=== PATIENT | female | born 1975 | race Caucasian/White ===

== ENCOUNTER 2020-08-09 16:56 | Inpatient (IN) ==
[2020-08-09] MEDS ORDERED: Dextrose 50% Syringe 50 ml 25 GM/50 ML SYRINGE IV PUSH PRN (17:26)
[2020-08-09 17:47] LABS: ABS Eosinophils 0.1 10^3/ul (0-0.6); ABS Lymphocytes 0.6 10^3/ul (1.0-4.8); ABS Monocytes 0.6 10^3/ul (0-0.8); ABS Neutrophils 9.6 10^3/ul (1.5-7.7); Eosinophil % 1.3 %; Hematocrit 31 % (35-47); Hemoglobin 10.4 g/dL (12.0-16.0); Lymphocyte % 5.3 %; Mean Corpuscular HGB Conc 34 g/dL (31-36); Mean Corpuscular Hemoglobin 32 pg (27-31); Mean Corpuscular Volume 95 fL (80-97); Mean Platelet Volume 9.1 fL (7.4-10.4); Platelet Count 178 10^3/uL (150-450); Red Blood Count 3.23 10^6 /uL (3.70-4.87); Red Cell Distribution Width 14 % (10-15); White Blood Count 10.9 10^3/uL (3.5-10.8)
[2020-08-09] MEDS ORDERED: LORazepam 2 mg VIAL 1 ml IV PUSH PRN (17:59)
[2020-08-09] MEDS ORDERED: Lorazepam PYXIS KEY PRN (17:59)
[2020-08-09] MEDS ORDERED: Heparin 5000 UNITS/ML 1 mL VIAL IV SCH (18:00)
[2020-08-09] MEDS ORDERED: Ondansetron 4 mg VIAL 2 MG/ML 2 ml VIAL IV PRN (18:01)
[2020-08-09 18:05] LABS: BUN/Creatinine Ratio 15.6 (8-20); Calcium 8.2 mg/dL (8.6-10.3); EGFR African American 35.9 (>60); EGFR Non-African American 29.7 (>60); Globulin 2.9 g/dL (2-4); Potassium 3.7 mmol/L (3.5-5.0); Total Bilirubin 5.9 mg/dL (0.2-1.0); Total Protein 5.9 g/dL (6.4-8.9)
[2020-08-09] MEDS: HYDROmorphone 1 MG/1 ML SYRINGE IV SLOW PU PRN ×2 (18:05→22:29)
[2020-08-09 18:18] LABS: Activated Partial Thrombo Time 45.6 seconds (26.0-38.0); INR 1.26 (0.82-1.09)
[2020-08-09] MEDS: Heparin DRIP 25,000 UNITS BAG 25,000 UNITS/500 ML BAG IV SCH (19:15)
[2020-08-09] MEDS: NS 0.9% 1000 ml BAG 1,000 ML IV SCH (19:21)
[2020-08-09] MEDS: Piperacillin/Tazobac ADVAN 3.375 GM in NS 0.9% 100 ml BAG 100 ML IV SCH (22:45)
[2020-08-10] MEDS: Levothyroxine 100 MCG/5 ML VIAL IV SCH (05:42)
[2020-08-10] MEDS: Piperacillin/Tazobac ADVAN 3.375 GM in NS 0.9% 100 ml BAG 100 ML IV SCH ×3 (05:46→22:26)
[2020-08-10 07:53] LABS: ABS Eosinophils 0.3 10^3/ul (0-0.6); ABS Lymphocytes 0.9 10^3/ul (1.0-4.8); ABS Monocytes 0.7 10^3/ul (0-0.8); ABS Neutrophils 7.8 10^3/ul (1.5-7.7); Eosinophil % 2.7 %; Hematocrit 31 % (35-47); Hemoglobin 10.2 g/dL (12.0-16.0); Lymphocyte % 9.3 %; Mean Corpuscular HGB Conc 33 g/dL (31-36); Mean Corpuscular Hemoglobin 32 pg (27-31); Mean Corpuscular Volume 97 fL (80-97); Mean Platelet Volume 9.4 fL (7.4-10.4); Platelet Count 180 10^3/uL (150-450); Red Blood Count 3.16 10^6 /uL (3.70-4.87); Red Cell Distribution Width 14 % (10-15); White Blood Count 9.6 10^3/uL (3.5-10.8)
[2020-08-10 08:04] LABS: Albumin 2.9 g/dL (3.2-5.2); BUN/Creatinine Ratio 17.7 (8-20); Calcium 8.2 mg/dL (8.6-10.3); EGFR African American 38.6 (>60); EGFR Non-African American 31.9 (>60); Globulin 2.8 g/dL (2-4); Indirect Bilirubin 1.6 mg/dL (0.3-1.0); Potassium 3.7 mmol/L (3.5-5.0); Total Bilirubin 5.3 mg/dL (0.2-1.0); Total Protein 5.7 g/dL (6.4-8.9)
[2020-08-10] MEDS: HYDROmorphone 1 MG/1 ML SYRINGE IV SLOW PU PRN ×2 (08:47→20:23)
[2020-08-10] MEDS: Insulin GLARGINE 100 un/ml 10 ml VIAL SUBCUT SCH (08:47)
[2020-08-10] MEDS: NS 0.9% 1000 ml BAG 1,000 ML IV SCH (10:18)
[2020-08-10] MEDS ORDERED: Perflutren Lipid Microsphere 3 ML VIAL ONE (10:49)
[2020-08-10] MEDS ORDERED: HYDROmorphone 1 MG/1 ML SYRINGE ONE (14:19)
[2020-08-10] MEDS ORDERED: Lidocaine 2% PF 5 ML VIAL ONE (14:20)
[2020-08-10] MEDS ORDERED: Midazolam 2 mg/2 ml VIAL 1 mg/ml 2 ml VIAL (2 mg) ONE (14:20)
[2020-08-10] MEDS ORDERED: Propofol 10 MG/ML 20 ML BTL ONE ×3 (14:20→15:14)
[2020-08-10] MEDS ORDERED: Ondansetron 4 mg VIAL 2 MG/ML 2 ml VIAL ONE (14:32)
[2020-08-10] MEDS ORDERED: Rocuronium 50 mg VIAL 10 mg/ml 5 ml VIAL (50 mg) ONE ×2 (15:03→15:11)
[2020-08-10] MEDS ORDERED: Succinylcholine 200 mg VIAL 20 mg/ml 10 ml VIAL (200 mg) ONE (15:11)
[2020-08-10] MEDS ORDERED: Bupivacaine 0.25% SDV 30 ML ONE (15:31)
[2020-08-10] MEDS ORDERED: Dexamethasone IV 4 MG/ML VIAL 1 ml VIAL ONE (16:09)
[2020-08-10] MEDS ORDERED: Phenylephrine IV 10 MG/ML 1 ml VIAL ONE (16:30)
[2020-08-10] MEDS ORDERED: EPHEDrine (Pressors) 50 MG/ML VIAL ONE (16:51)
[2020-08-10] MEDS ORDERED: fentaNYL 100 mcg/2 ml 50 MCG/ML VIAL ONE ×2 (17:09→18:33)
[2020-08-10] MEDS ORDERED: Metoclopramide 5 MG/ML VIAL (10 mg) IV PRN (18:30)
[2020-08-10] MEDS ORDERED: DiMENhydriNATE IV 50 mg/ml 1 ml VIAL IV PUSH PRN (18:30)
[2020-08-10] MEDS: fentaNYL 100 mcg/2 ml 50 MCG/ML VIAL IV PRN ×2 (18:35→18:48)
[2020-08-11] MEDS: HYDROmorphone 1 MG/1 ML SYRINGE IV SLOW PU PRN ×5 (00:21→21:02)
[2020-08-11] MEDS: Piperacillin/Tazobac ADVAN 3.375 GM in NS 0.9% 100 ml BAG 100 ML IV SCH ×3 (05:58→21:26)
[2020-08-11] MEDS: Levothyroxine 100 MCG/5 ML VIAL IV SCH (06:09)
[2020-08-11 06:56] LABS: ABS Lymphocytes 0.5 10^3/ul (1.0-4.8); ABS Monocytes 0.6 10^3/ul (0-0.8); ABS Neutrophils 9.6 10^3/ul (1.5-7.7); Hematocrit 31 % (35-47); Hemoglobin 10.4 g/dL (12.0-16.0); Lymphocyte % 4.8 %; Mean Corpuscular HGB Conc 34 g/dL (31-36); Mean Corpuscular Hemoglobin 33 pg (27-31); Mean Corpuscular Volume 97 fL (80-97); Mean Platelet Volume 9.8 fL (7.4-10.4); Platelet Count 194 10^3/uL (150-450); Red Blood Count 3.19 10^6 /uL (3.70-4.87); Red Cell Distribution Width 14 % (10-15); White Blood Count 10.8 10^3/uL (3.5-10.8)
[2020-08-11 07:09] LABS: Albumin 2.9 g/dL (3.2-5.2); BUN/Creatinine Ratio 18.1 (8-20); Calcium 8.2 mg/dL (8.6-10.3); EGFR African American 50.7 (>60); EGFR Non-African American 41.9 (>60); Globulin 2.9 g/dL (2-4); Potassium 4.1 mmol/L (3.5-5.0); Total Bilirubin 5.3 mg/dL (0.2-1.0); Total Protein 5.8 g/dL (6.4-8.9)
[2020-08-11] MEDS: NS 0.9% 1000 ml BAG 1,000 ML IV SCH (07:44)
[2020-08-11] MEDS: Heparin DRIP 25,000 UNITS BAG 25,000 UNITS/500 ML BAG IV SCH ×2 (08:03→22:35)
[2020-08-11] MEDS: Insulin GLARGINE 100 un/ml 10 ml VIAL SUBCUT SCH (08:59)
[2020-08-12] MEDS: HYDROmorphone 1 MG/1 ML SYRINGE IV SLOW PU PRN (05:32)
[2020-08-12] MEDS: Piperacillin/Tazobac ADVAN 3.375 GM in NS 0.9% 100 ml BAG 100 ML IV SCH (05:33)
[2020-08-12 05:39] LABS: ABS Basophils 0.1 10^3/ul (0-0.2); ABS Lymphocytes 1.3 10^3/ul (1.0-4.8); ABS Monocytes 1.3 10^3/ul (0-0.8); ABS Neutrophils 12.1 10^3/ul (1.5-7.7); Eosinophil % 0.1 %; Hematocrit 31 % (35-47); Hemoglobin 10.1 g/dL (12.0-16.0); Lymphocyte % 8.7 %; Mean Corpuscular HGB Conc 33 g/dL (31-36); Mean Corpuscular Hemoglobin 32 pg (27-31); Mean Corpuscular Volume 97 fL (80-97); Mean Platelet Volume 9.2 fL (7.4-10.4); Platelet Count 211 10^3/uL (150-450); Red Blood Count 3.17 10^6 /uL (3.70-4.87); Red Cell Distribution Width 14 % (10-15); White Blood Count 14.7 10^3/uL (3.5-10.8)
[2020-08-12 06:07] LABS: Calcium 8.3 mg/dL (8.6-10.3); EGFR African American 55.3 (>60); EGFR Non-African American 45.7 (>60); Globulin 3.1 g/dL (2-4); Potassium 3.8 mmol/L (3.5-5.0); Total Bilirubin 3.2 mg/dL (0.2-1.0); Total Protein 6.1 g/dL (6.4-8.9)
[2020-08-12] MEDS: Insulin GLARGINE 100 un/ml 10 ml VIAL SUBCUT SCH (09:15)
[2020-08-12 11:47] VITALS: BP 143/81
== END 2020-08-12 13:00 | disposition home or self-care (01) | DRG 263 ==
LOC: SSU 16:56
PROVIDERS: ADMIT Internal Medicine; ATTEND Surgery